=== PATIENT | female | born 1955 | race Caucasian/White ===

== ENCOUNTER 2017-05-15 17:02 | Observation (INO) | payer OTHER ==
[2017-05-15] MEDS ORDERED: HYDROMORPHONE 1MG/1ML INJ IV PRN (17:30)
[2017-05-15] MEDS ORDERED: HYDROMORPHONE 2MG/ML INJ IV PRN (17:30)
[2017-05-15 17:36] LABS: BASOPHILS # (AUTO) 0.1 (0.0-0.1); BASOPHILS % 0.4 % (0.0-1.0); EOSINOPHILS # (AUTO) 0.4 (0.0-0.4); EOSINOPHILS % 2.4 % (0.0-6.0); HEMATOCRIT 45.1 % (34.2-44.1); HEMOGLOBIN 14.3 g/dL (12.0-16.0); LYMPHOCYTES # (AUTO) 4.1 (1.0-3.2); LYMPHOCYTES % 28.3 % (18.0-39.1); MEAN CORPUSCULAR HEMOGLOBIN 29.5 pg (28-32); MEAN CORPUSCULAR HGB CONC 31.7 g/dL (31-35); MONOCYTES # (AUTO) 0.7 (0.2-0.8); MONOCYTES % 4.5 % (4.4-11.3); NEUTROPHILS # (AUTO) 9.3 (2.1-6.9); PLATELET COUNT 312 x10e3/uL (140-360); RED BLOOD COUNT 4.85 x10e6/uL (3.6-5.1); RED CELL DISTRIBUTION WIDTH 13.2 % (11.7-14.4)
[2017-05-15 17:58] VITALS: BP 111/61
[2017-05-15 18:00] LABS: ALANINE AMINOTRANSFERASE 12 IU/L (0-55); ALBUMIN 3.9 g/dL (3.5-5.0); ALBUMIN/GLOBULIN RATIO 0.9 (0.8-2.0); ALKALINE PHOSPHATASE 108 IU/L (40-150); AMYLASE 34 U/L (25-125); ANION GAP 15.2 mmol/L (8-16); BLOOD UREA NITROGEN 9 mg/dL (7-26); BUN/CREATININE RATIO 12 (6-25); CALCIUM 9.7 mg/dL (8.4-10.2); CARBON DIOXIDE 26 mmol/L (22-29); CHLORIDE 104 mmol/L (98-107); CREATININE, SERUM 0.76 mg/dL (0.57-1.11); EST GLOMERULAR FILTRATION RATE > 60 ML/MIN (60-); GLUCOSE 93 mg/dL (74-118); POTASSIUM 4.2 mmol/L (3.5-5.1); SODIUM 141 mmol/L (136-145)
[2017-05-15] MEDS ORDERED: COQ-10100 MG PO (18:10)
[2017-05-15] MEDS ORDERED: ZYRTEC10 M3 PO (18:10)
[2017-05-15] MEDS ORDERED: CRESTOR10 MG PO (18:10)
[2017-05-15] MEDS ORDERED: METFORMIN HCL500 MG PO (18:10)
[2017-05-15] MEDS ORDERED: VITAMIN D1000 UNI1 PO (18:10)
[2017-05-15] MEDS: SODIUM CHLORIDE 0.9% 1000ML 1,000 ML IV SCH (18:47)
[2017-05-15] MEDS: LEVOFLOXACIN 500MG/D5W 100ML 100 ML IV SCH (18:51)
[2017-05-15 20:00] VITALS: BP 102/54
[2017-05-15] MEDS ORDERED: METRONIDAZOLE 500MG/NS 100ML 100 ML IV SCH (22:00)
[2017-05-16] VITALS: BP 105/53
[2017-05-16] MEDS: CEFTRIAXONE SOD 1 GM/NS 50 ML 50 ML IV SCH (01:32)
[2017-05-16] MEDS: SODIUM CHLORIDE 0.9% 1000ML 1,000 ML IV SCH ×4 (01:32→20:10)
[2017-05-16 04:00] VITALS: BP 93/54
[2017-05-16] MEDS: INSULIN REGULAR, HUMAN 100 UNIT/1 ML 3ML VIAL SQ SCH ×5 (06:00→21:00)
[2017-05-16 06:56] LABS: BASOPHILS # (AUTO) 0.1 (0.0-0.1); BASOPHILS % 0.6 % (0.0-1.0); EOSINOPHILS # (AUTO) 0.4 (0.0-0.4); EOSINOPHILS % 3.4 % (0.0-6.0); HEMATOCRIT 44.9 % (34.2-44.1); HEMOGLOBIN 14.3 g/dL (12.0-16.0); LYMPHOCYTES # (AUTO) 4.1 (1.0-3.2); LYMPHOCYTES % 32.5 % (18.0-39.1); MEAN CORPUSCULAR HEMOGLOBIN 29.1 pg (28-32); MEAN CORPUSCULAR HGB CONC 31.8 g/dL (31-35); MEAN CORPUSCULAR VOLUME 91.4 fL (81-99); MONOCYTES # (AUTO) 0.6 (0.2-0.8); MONOCYTES % 4.8 % (4.4-11.3); NEUTROPHILS # (AUTO) 7.3 (2.1-6.9); NEUTROPHILS % 58.1 % (38.7-80.0); PLATELET COUNT 284 x10e3/uL (140-360); RED BLOOD COUNT 4.91 x10e6/uL (3.6-5.1); RED CELL DISTRIBUTION WIDTH 13.2 % (11.7-14.4)
[2017-05-16 07:18] LABS: ANION GAP 11.9 mmol/L (8-16); BLOOD UREA NITROGEN 9 mg/dL (7-26); BUN/CREATININE RATIO 13 (6-25); CALCIUM 9.1 mg/dL (8.4-10.2); CARBON DIOXIDE 27 mmol/L (22-29); CHLORIDE 106 mmol/L (98-107); EST GLOMERULAR FILTRATION RATE > 60 ML/MIN (60-); GLUCOSE 92 mg/dL (74-118); POTASSIUM 3.9 mmol/L (3.5-5.1); SODIUM 141 mmol/L (136-145)
[2017-05-16 08:31] VITALS: BP 118/55
[2017-05-16] MEDS ORDERED: DIATRIZOATE MEGL/DIATRIZOA SOD 30 ML BTL PO ONE (09:06)
[2017-05-16] MEDS: PANTOPRAZOLE 40 MG 10ML VIAL IV SCH (10:20)
--- NOTE | 2017-05-16 10:53 | Diagnostic Imaging Report ---
PROCEDURE: CT ABDOMEN AND PELVIS WITHOUT CONTRAST TECHNIQUE: The abdomen and pelvis were scanned utilizing a multidetector helical scanner from the diaphragm to the lesser trochanter after the oral administration of Redicat. No intravenous contrast was administered per referring physician request. Coronal and sagittal multiplanar reformations were obtained. COMPARISON: None. INDICATIONS: ABDOMINAL PAIN FINDINGS: ABSENCE OF INTRAVENOUS CONTRAST DECREASES SENSITIVITY FOR DETECTION OF FOCAL LESIONS AND VASCULAR PATHOLOGY. LOWER THORAX: Normal. HEPATOBILIARY: Hepatic parenchyma is diffusely hypoattenuating compatible with steatosis. No focal hepatic lesion or intrahepatic biliary ductal dilatation. The gallbladder has been removed with multiple metallic clips in the gallbladder fossa. SPLEEN: No splenomegaly. PANCREAS: No focal masses or ductal dilatation. ADRENALS: No adrenal nodules. KIDNEYS/URETERS: No hydronephrosis, stones, or solid mass lesions. PELVIC ORGANS/BLADDER: The urinary bladder and uterus are unremarkable. The uterus is anteflexed. 2.1 cm right adnexal cystic lesion, average internal attenuation 5-10 Hounsfield units. PERITONEUM / RETROPERITONEUM: No ascites. No pneumoperitoneum. LYMPH NODES: No pelvic sidewall, retroperitoneal, or mesenteric lymphadenopathy. VESSELS: Limited evaluation without intravenous contrast. Atherosclerotic calcification of the abdominal aorta and branch vessels without aneurysmal dilatation. GI TRACT: There is a mild concentric wall thickening of the distal sigmoid colon and rectum and, to a lesser extent, the ascending and transverse colon. The appendix is not identified and has presumably been removed. There is no small bowel dilatation to suggest obstruction. BONES AND SOFT TISSUES: No focal soft tissue abnormalities. No osseous destructive lesions. Multilevel degenerative disc changes of the lumbar spine. IMPRESSION: Findings suggest mild proctocolitis, likely infectious in nature. No evidence of perforation or drainable fluid collection. Right adnexal cystic lesion should be further evaluated by pelvic ultrasound in a patient of this age. Atherosclerotic vascular disease. Hepatic steatosis. Dictated by: Eric Lopez M.D. on 05/16/2017 at 10:59 Electronically approved by: Eric Lopez M.D. on 05/16/2017 at 10:59
[2017-05-16] MEDS ORDERED: DEXTROSE 50% SYRINGE 50 ML IV PRN (11:30)
[2017-05-16 12:00] VITALS: BP 103/55
[2017-05-16] MEDS: LORATADINE 10 MG TAB PO SCH (12:55)
[2017-05-16] MEDS: CHOLECALCIFEROL 1,000 UNIT TAB PO SCH (12:55)
--- NOTE | 2017-05-16 12:56 | Diagnostic Imaging Report ---
PROCEDURE:TRANSVAGINAL ULTRASOUND COMPARISON:[facility], CT, CT ABDOMEN/PELVIS WO, 05/16/2017, 10:19. INDICATIONS:Adnexal Cyst on recent CT examination. Ultrasound requested for further characterization. FINDINGS: A3 Multiple sagittal and axial images were obtained of the pelvis transabdominally and transvaginally. The uterus is normal in orientation and measures 8.0 x 3.9 x 4.4 cm, mildly prominent likely related to multiparity. It is of normal echogenicity without focal masses. The endometrial stripe measures 0.5 and is within normal limits. Cervical nabothian cysts, the largest mildly complex. The right ovary measures 3.8 x 2.7 x 3.0 cm. there is an oval anechoic lesion in the right ovary measuring 3.2 x 2.3 x 2.4 cm. The left ovary is not visualized compatible with provided history of status post oophorectomy. No right or left paraovarian masses identified. No free fluid seen within the pelvic cul-de-sac. CONCLUSION: 1. 3.2 cm simple cyst in the right ovary. Recommend followup ultrasound the pelvis in one year to document resolution (society of ultrasound consensus recommendation). Shaun Espinosa M.D. Dictated by: Shaun Espinosa M.D. on 05/16/2017 at 13:02 Electronically approved by: Shaun Espinosa M.D. on 05/16/2017 at 13:02
[2017-05-16 15:46] LABS: BILIRUBIN,URINE NEGATIVE (NEGATIVE); KETONES,URINE NEGATIVE (NEGATIVE); LEUKOCYTE ESTERASE ,URINE NEGATIVE (NEGATIVE); NITRITE,URINE NEGATIVE (NEGATIVE); PROTEIN,URINE DIPSTICK NEGATIVE (NEGATIVE); URINE UROBILINOGEN 0.2 mg/dL (0.2 - 1)
[2017-05-16 15:56] LABS: CLARITY,URINE CLEAR (CLEAR); COLOR,URINE STRAW (YELLOW)
[2017-05-16 16:04] LABS: EPITHELIAL CELLS,URINE MODERATE /LPF
[2017-05-16 16:05] LABS: RBC,URINE 0-5 /HPF (0-5); WBC,URINE (MAN) 0-5 /HPF (0-5)
[2017-05-16] MEDS ORDERED: PEG (High)/E-LYTE SOLN 4,000 ML BTL PO ONE (17:15)
[2017-05-16] MEDS: METFORMIN HCL 500 MG TAB PO SCH (17:44)
[2017-05-16 18:07] VITALS: BP 125/64
[2017-05-16 20:00] VITALS: BP 133/62
[2017-05-16] MEDS: LEVOFLOXACIN 500MG/D5W 100ML 100 ML IV SCH (20:05)
[2017-05-16] MEDS ORDERED: SIMVASTATIN 20 MG TAB PO SCH (21:00)
[2017-05-17] MEDS: CEFTRIAXONE SOD 1 GM/NS 50 ML 50 ML IV SCH (00:20)
[2017-05-17 02:23] VITALS: BP 108/55
[2017-05-17] MEDS: SODIUM CHLORIDE 0.9% 1000ML 1,000 ML IV SCH ×3 (03:05→16:10)
[2017-05-17 04:00] VITALS: BP 122/56
[2017-05-17 06:46] LABS: BASOPHILS # (AUTO) 0.1 (0.0-0.1); BASOPHILS % 0.5 % (0.0-1.0); EOSINOPHILS # (AUTO) 0.4 (0.0-0.4); EOSINOPHILS % 2.9 % (0.0-6.0); HEMOGLOBIN 13.4 g/dL (12.0-16.0); LYMPHOCYTES # (AUTO) 3.9 (1.0-3.2); LYMPHOCYTES % 32.2 % (18.0-39.1); MEAN CORPUSCULAR HEMOGLOBIN 29.6 pg (28-32); MEAN CORPUSCULAR HGB CONC 31.9 g/dL (31-35); MEAN CORPUSCULAR VOLUME 92.9 fL (81-99); MONOCYTES # (AUTO) 0.7 (0.2-0.8); MONOCYTES % 5.4 % (4.4-11.3); NEUTROPHILS % 58.6 % (38.7-80.0); PLATELET COUNT 244 x10e3/uL (140-360); RED BLOOD COUNT 4.52 x10e6/uL (3.6-5.1); RED CELL DISTRIBUTION WIDTH 13.1 % (11.7-14.4)
[2017-05-17 07:19] LABS: ANION GAP 11.8 mmol/L (8-16); BLOOD UREA NITROGEN 5 mg/dL (7-26); BUN/CREATININE RATIO 7 (6-25); CARBON DIOXIDE 28 mmol/L (22-29); CHLORIDE 106 mmol/L (98-107); CREATININE, SERUM 0.67 mg/dL (0.57-1.11); EST GLOMERULAR FILTRATION RATE > 60 ML/MIN (60-); GLUCOSE 94 mg/dL (74-118); POTASSIUM 3.8 mmol/L (3.5-5.1); SODIUM 142 mmol/L (136-145)
[2017-05-17] MEDS: INSULIN REGULAR, HUMAN 100 UNIT/1 ML 3ML VIAL SQ SCH ×3 (07:30→16:30)
[2017-05-17] MEDS: METFORMIN HCL 500 MG TAB PO SCH ×2 (07:37→17:58)
[2017-05-17 08:12] VITALS: BP 117/53
[2017-05-17] MEDS: PANTOPRAZOLE 40 MG 10ML VIAL IV SCH (08:48)
[2017-05-17] MEDS: LORATADINE 10 MG TAB PO SCH (08:48)
[2017-05-17] MEDS: CHOLECALCIFEROL 1,000 UNIT TAB PO SCH (08:51)
[2017-05-17] MEDS ORDERED: SIMVASTATIN 40 MG TAB PO SCH (09:00)
[2017-05-17 12:15] VITALS: BP 117/84
[2017-05-17] MEDS ORDERED: HYOSCYAMINE SULFATE 0.5 MG/ML AMP ONE (15:17)
[2017-05-17] MEDS ORDERED: FENTANYL CITRATE/PF 100MCG/2 ML INJ ONE (16:25)
[2017-05-17] MEDS ORDERED: MIDAZOLAM HCL 2 MG/2 ML VIAL ONE (16:25)
[2017-05-17 17:01] LABS: WBC,FECAL (FECAL LACTOFERRIN) NEGATIVE (NEGATIVE)
[2017-05-17] MEDS ORDERED: LEVAQUIN500 MG PO (18:05)
[2017-05-17] MEDS ORDERED: GLUCAGON FOR INJ 1 MG VIAL ONE (18:55)
[2017-05-17 20:00] VITALS: BP 129/68
[2017-05-18 09:33] LABS: C DIFFICILE TOXIN A&B AMP PROB NEGATIVE (NEGATIVE)
--- NOTE | 2017-07-03 00:10 | Operative Report ---
DATE OF PROCEDURE: May 17, 2017 REFERRING PHYSICIAN: Dr. Silver Robison PROCEDURES 1. Esophagogastroduodenoscopy with biopsies. 2. Colonoscopy with polypectomy and biopsies. INDICATIONS FOR EGD: Upper abdominal pain. INDICATIONS FOR COLONOSCOPY: Lower abdominal pain and abnormal CT scan. MEDICATIONS: Patient was done under MAC. Please see anesthesiologist's notes. PROCEDURE: With the patient in the left lateral decubitus position, the flexible fiberoptic Olympus gastroscope was introduced into the esophagus under direct visualization without any difficulty. There were some mild inflammatory changes noted in the distal esophagus. The scope was then advanced with ease into the stomach traversing a small hiatal hernia. Mucosa overlying the antrum and the body revealed some diffuse erythema and low-grade edema, and biopsies were obtained and sent to stain for H. pylori. Approximately, 1 cm raised area was noted in the proximal body along the greater curvature. That was biopsied. The pylorus appeared to be of normal contour and shape. It was intubated with ease. The scope was advanced all the way to the 2nd portion of the duodenum. The scope was then withdrawn slowly. Mucosa overlying the proximal 2nd portion and the duodenal bulb appeared to be within normal limits. The scope was then withdrawn back into the stomach and retroflexed. The mucosa overlying the fundus and the cardia appeared to be within normal limits. The scope was then straightened out. The stomach was decompressed. The scope was subsequently withdrawn. Patient tolerated the procedure well. IMPRESSION 1. Distal esophagitis. 2. Hiatal hernia. 3. Gastritis, biopsied. Biopsy sent to stain for Helicobacter pylori. 4. Approximately 1 cm focally raised area in upper body greater curvature, biopsied. PLAN: Follow up histology. Initiate Protonix 40 mg 1 p.o. q.a.m. and a.c. Patient might need an EUS to examine the aforementioned raised area in the body of the stomach. Patient was then turned around. After adequate lubrication of the anal canal, a flexible fiberoptic Olympus colonoscope was inserted into the rectum with ease and advanced all the way to the cecum. The ileocecal valve was intubated. The scope was advanced into the terminal ileum. Biopsies were obtained. The scope was then withdrawn back into the colon. Prep overall was suboptimal with retained stool in the colon. The scope was then withdrawn slowly. Whatever was visualized of the mucosa overlying the ascending colon and transverse colon appeared to be within normal limits. One polyp was hot biopsied from the descending colon. Diverticular disease was noted to involve the sigmoid colon. The mucosa overlying the sigmoid and the rectum revealed some patchy mild inflammatory changes, and biopsies were obtained. One polyp was snared from the sigmoid colon. One polyp was snared from the rectum. The scope was then retroflexed into the distal rectum and small internal hemorrhoids were noted, none of which was actively bleeding. The scope was then straightened out. The rectosigmoid area, as well as the distal rectal area were decompressed. The scope was subsequently withdrawn after securing an adequate stool specimen that was sent for the appropriate stool studies. Patient tolerated the procedure well. IMPRESSION 1. Suboptimal prep. 2. Descending colon polyp, hot biopsied. 3. Diverticulosis. 4. Sigmoid colon polyp, snared. 5. Rectal polyp, snared. 6. Mild proctosigmoiditis. 7. Internal hemorrhoids, none actively bleeding. PLAN: Follow up histology. Follow up stool studies. Patient will need a repeat colonoscopy after a better prep to rule out synchronous colon neoplasm. Job#: [id number] RI cc:SILVER ROBISON MD
== END 2017-05-17 19:54 | disposition home or self-care (01) ==
LOC: MED/SURG 17:09 → INTOOBSV 17:09
PROVIDERS: ADMIT Surgery; ATTEND Surgery
DX: D12.4 Benign neoplasm of descending colon (principal); R10.31 Right lower quadrant pain; E11.9 Type 2 diabetes mellitus without complications; I25.10 Atherosclerotic heart disease of native coronary artery without angina pectoris; K51.30 Ulcerative (chronic) rectosigmoiditis without complications; K57.90 Diverticulosis of intestine, part unspecified, without perforation or abscess without bleeding; K62.1 Rectal polyp; K20.9 Esophagitis, unspecified; K29.70 Gastritis, unspecified, without bleeding
CPT/HCPCS: 36415 ×3; 45380; 45384; 45385; 74176; 76830; 80048 ×2; 80053; 81001; 82150; 82948 ×2; 83630; 83993; 85025 ×3; 87045; 87086; 87493; 88305; 88312; 93005; G0378 ×3; J0696 ×2; J1610; J1956 ×2; J1980; J2250; J7030 ×3; J7799; 43239

== ENCOUNTER → 2017-07-30 | Outpatient (CLI) | payer OTHER ==
[~2017-07-30] MED LIST: COQ-10100 MG PO; CRESTOR10 MG PO; LEVAQUIN500 MG PO; METFORMIN HCL500 MG PO; VITAMIN D1000 UNI1 PO; ZYRTEC10 M3 PO
--- NOTE | 2017-08-14 08:24 | Diagnostic Imaging Report ---
#[id number] - MGSCRBIL #BILATERAL DIGITAL SCREENING MAMMOGRAM WITH CAD: 07/30/2017 CLINICAL: Routine screening. Comparison is made to exams dated: 07/12/2016 mammogram, 06/18/2015 mammogram and 06/18/2014 mammogram - [facility]. Current study contains 5 films. There are scattered fibroglandular elements in both breasts. Current study was also evaluated with a Computer Aided Detection (CAD) system. There are benign calcifications in both breasts. There also are benign nodules in the right breast. No significant masses, calcifications, or other findings are seen in either breast. There has been no significant interval change. IMPRESSION: BENIGN There is no mammographic evidence of malignancy. A 1 year screening mammogram is recommended. The patient will be notified by letter of the results. Vel sharma/gold:08/13/2017 08:21:26 Cleaner Wall: Chloe CORBETT(Autumn)(Melissa), [facility] letter sent: Compared to Prior B9 Mammogram BI-RADS: 2 Benign
== END ==
LOC: MAMMO 13:38
PROVIDERS: ATTEND Family Medicine
DX: Z12.31 Encounter for screening mammogram for malignant neoplasm of breast (principal)
CPT/HCPCS: 77067

== ENCOUNTER → 2017-11-28 | Outpatient (CLI) | payer OTHER ==
--- NOTE | 2017-11-28 17:28 | Diagnostic Imaging Report ---
EXAM: Transabdominal and Transvaginal Pelvic Ultrasound INDICATION: ADNEXAL CYST COMPARISON: 05/16/2017 TECHNIQUE: Grayscale transverse and sagittal transabdominal images were obtained of the pelvis. CLINICAL HISTORY: 62 year old A3; last menstrual period: At least 10 years ago. FINDINGS: Uterus Orientation: Normal Size: 7.7 x 3.5 x 4.4 cm, Normal Mass: None Cervix: Normal Endometrium: Thickness: 0.4 cm, Normal. Appearance: Homogeneous echotexture without focal thickening. Right ovary: Size: 4.4 x 2.5 x 2.8 cm Mass/Cyst: Anechoic lesion measures 2.5 x 2.0 x 1.9 cm, previously 3.2 x 2.3 x 2.4 cm (previous measurement obtained transvaginally). Left ovary: Not visualized. Adnexa: Normal Cul-de-sac: No free fluid IMPRESSION: Mild interval decrease in size of right ovarian cyst currently measuring 2.5 cm in maximal dimension. Suggest additional follow-up pelvis in one year to further document stability. Signed by: Dr. Shaun Espinosa M.D. on 11/28/2017 5:24 PM
== END ==
LOC: US 13:44
PROVIDERS: ATTEND Internal Medicine Gastroenterology
DX: D39.8 Neoplasm of uncertain behavior of other specified female genital organs (principal)
CPT/HCPCS: 76856

== ENCOUNTER → 2018-04-18 | Outpatient (CLI) | payer OTHER ==
--- NOTE | 2018-04-18 10:26 | Diagnostic Imaging Report ---
PROCEDURE:US LIVER COMPARISON:None. INDICATIONS:FATTY LIVER TECHNIQUE: Braswell-scale and color doppler transverse and longitudinal images of the right upper quadrant of the abdomen were obtained. FINDINGS: Liver: Measures 15.3 cm in right mid-clavicular line. Normal echogenicity. No masses. Main portal vein: Measures 0.8 cm, Hepatopetal flow. Gallbladder: Status post cholecystectomy. Common Bile Duct: 0.5 cm Right kidney: Measures 10.2 cm. Normal echogenicity. No solid masses or hydronephrosis. Pancreas: The visualized portions are unremarkable. Inferior vena cava: Patent Aorta: Within normal limits Ascites: None in the right upper quadrant of the abdomen. CONCLUSION: No sonographic evidence of fatty liver. Status post cholecystectomy. Dictated by: WILLEM DONOVAN M.D. on 04/18/2018 at 10:34 Electronically approved by: WILLEM DONOVAN M.D. on 04/18/2018 at 10:34
== END ==
LOC: US 08:36
PROVIDERS: ATTEND Internal Medicine Gastroenterology
DX: K76.0 Fatty (change of) liver, not elsewhere classified (principal)
CPT/HCPCS: 76705

== ENCOUNTER → 2018-08-06 | Outpatient (CLI) | payer OTHER | LOC: MAMMO 10:41 | DX: Z12.31 Encounter for screening mammogram for malignant neoplasm of breast (principal) | CPT/HCPCS: 77067 ==

== ENCOUNTER → 2019-06-13 | Day surgery (SDC) | payer OTHER ==
[~2019-06-13] MED LIST changes: +FENTANYL CITRATE/PF 100MCG/2 ML INJ ONE; +HYOSCYAMINE 0.125 MG TAB ONE; +MIDAZOLAM HCL 2 MG/2 ML VIAL ONE; +PANTOPRAZOLE SO40 MG PO; +PROPOFOL IV EMULSION 10 MG/ML 50 ML VIAL ONE; +VITAMIN B-121000 MCG PO
[2019-06-13 12:30] VITALS: BP 97/56
--- NOTE | 2019-06-13 18:38 | Operative Report ---
DATE OF PROCEDURE: 06/13/2019 SURGEON: Randy Olivier MD PROCEDURE: EGD with biopsy and colonoscopy with polypectomy. INDICATIONS FOR EGD: History of acid reflux, gastric nodule. INDICATIONS FOR COLONOSCOPY: Surveillance colonoscopy, personal history of colon polyps, suboptimal prep on previous colonoscopy. MEDICATIONS: The patient was done under MAC, please see anesthesiologist's note. PROCEDURE IN DETAIL: With the patient in left lateral decubitus position, flexible fiberoptic Olympus gastroscope was introduced into the esophagus under direct visualization without any difficulty. There was a minute sessile lesion noted in the cervical esophagus just below the upper esophageal sphincter and that was biopsied. The scope was then advanced to the distal esophagus and there was some patchy mild erythema noted in the distal esophagus. The scope was then advanced with ease into the stomach traversing a small sliding hiatal hernia. Mucosa overlying the antrum and the body revealed some patchy intense erythema and moderate edema and biopsies were obtained and sent to stain for H pylori. Pylorus was of normal contour and shape was intubated with ease and the scope was advanced all the way to the second portion of the duodenum. The scope was then withdrawn slowly, mucosa overlying the proximal second portion and the duodenal bulb appeared to be within normal limits. The scope was then withdrawn back into the stomach and retroflexed the mucosa overlying the fundus and cardia appeared to be within normal limits. The scope was then straightened out, it was subsequently withdrawn. The patient tolerated the procedure well. IMPRESSION: 1. Minute sessile, slightly raised, nodule just below the upper esophageal sphincter biopsy. 2. Mild distal esophagitis. 3. Small sliding hiatal hernia. 4. Gastritis, biopsied sent to stain for H pylori. PLAN: Follow up histology. Continue Protonix 40 mg one p.o. q.a.m. a.c. The patient was then turned around after adequate lubrication of the anal canal a flexible fiberoptic Olympus colonoscope was inserted into the rectum with ease and advanced all the way to the cecum. It was then withdrawn slowly. Mucosa overlying the cecum and ascending colon appeared to be within normal limits. Two minute polyps were hot biopsied from the transverse colon. One minute polyp was hot biopsied from the descending colon. Diverticular disease was noted to involve the distal descending and the sigmoid colon and one polyp was hot biopsied from the distal rectum. The scope was then retroflexed into the distal rectum and small internal hemorrhoids were noted, none of which was actively bleeding. The scope was then straightened out and was subsequently withdrawn. The patient tolerated procedure well. IMPRESSION: 1. Transverse colon polyps x2, hot biopsied. 2. Descending colon polyp, hot biopsied. 3. Diverticulosis. 4. Rectal polyp, hot biopsied. 5. Internal hemorrhoids, none actively bleeding. PLAN: Follow up histology. Initiate high-fiber, low-fat diet. Initiate high-fiber supplement. The patient might benefit from a followup colonoscopy in 5 years. Randy Olivier MD [facility] – [place] /[id number] cc: MD Randy Greer MD
--- OUTSIDE RECORDS SUMMARY | 2019-06-20 11:49 | XMS REPORT ---
Author [facility] Address Unknown Phone Unavailable Care Team Providers Care Drawer Upfitter Name Role Phone CARMELLA SHEN Unavailable Unavailable MEE SHEN Unavailable Unavailable ARNOLDO GANDHI Unavailable Unavailable Tara LUGO Unavailable Unavailable Problems This patient has no known problems. Allergies, Adverse Reactions, Alerts This patient has no known allergies or adverse reactions. Medications This patient has no known medications. Results Test Description Test Time Test Comments Text Results Atomic Results Result Comments MAMMOGRAPHY DIGITAL SCR BILAT 2018-08-06 11:34:00 [place] [address] Patient Name: ABHI LEMOS MR #: [id number] : 1955 Age/Sex: 63/F Req #: [id number] Adm Physician: Ordered by: CARMELLA SHEN MD Report #: [id number] Location: MAMMO Room/Bed: Procedure: [id number] MG/MAMMOGRAPHY DIGITAL SCR BILAT Exam Date: 08/06/18 Exam Time: 1100 REPORT STATUS: Signed #[id number] - MGSCRBIL #BILATERAL DIGITAL SCREENING MAMMOGRAM WITH CAD: 08/06/2018 CLINICAL: Routine screening. Comparison is made to exams dated: 07/30/2017 mammogram and 06/18/2015 mammogram - [facility]. Current study contains 4 films. There are scattered fibroglandular elements in both breasts. Current study was also evaluated with a Computer Aided Detection (CAD) system. There are benign calcifications in both breasts. No significant masses, calcifications, or other findings are seen in either breast. There has been no significant interval change. IMPRESSION: BENIGN There is no mammographic evidence of malignancy. A 1 year screening mammogram is recommended. The patient will be notified by letter of the results. Vel sharma/gold:08/21/2018 13:39:45 Hydroblaster: Chloe MURPHY)(Melissa), [facility] letter sent: Compared to Prior B9 Mammogram BI-RADS: 2 Benign Dictated By: VEL ATKINS DO 1339 Transcribed By: GOLD on 08/21/18 1339 COPY TO: CARMELLA SHEN MD LIVER 2018-04-18 10:35:00 [place] [address] Patient Name: ABHI LEMOS MR #: [id number] : 1955 Age/Sex: 62/F Req #: [id number] [facility] Physician: Ordered by: MEE SHEN MD Report #: [id number] Location: Room/Bed: Procedure: [id number] US/US LIVER Exam Date: 04/18/18 Exam Time: 908 REPORT STATUS: Signed PROCEDURE: US LIVER COMPARISON: None. INDICATIONS: FATTY L IVER TECHNIQUE: Braswell-scale and color doppler transverse and longitudinal images of the right upper quadrant of the abdomen were obtained. FINDINGS: Liver: Measures 15.3 cm in right mid-clavicular line. Normal echogenicity. No masses. Main portal vein: Measures 0.8 cm, Hepatopetal flow. Gallbladder: Status post cholecystectomy. Common Bile Duct: 0.5 cm Right kidney: Measures 10.2 cm. Normal echogenicity. No solid masses or hydronephrosis. Pancreas: The visualized portions are unremarkable. Inferior vena cava: Patent Aorta: Within normal limits Ascites: None in the right upper quadrant of the abdomen. CONCLUSION: No sonographic evidence of fatty liver. Status post cholecystectomy. Dictated by: WILLEM DONOVAN M.D. on 04/18/2018 at 10:34 Electronically approved by: WILLEM DONOVAN M.D. on 04/18/2018 at 10:34 Dictated By: WILLEM DONOVAN MD 1035 Transcribed By: GARY on 04/18/18 1035 COPY TO: MEE HSEN MD US PELVIS COMPLETE NON OB [place] [address] Patient Name: ABHI LEMOS MR #: [id number] : 1955 Age/Sex: 62/F Req #: [id number] Adm Physician: Ordered by: MEE SHEN MD Report #: [id number] Location: Room/Bed: Procedure: [id number] US/US PELVIS COMPLETE NON OB Exam Date: 11/28/17 Exam Time: 1417 REPORT STATUS: Signed EXAM: Transabdominal and Transvaginal Pelvic Ultrasound INDICATION: ADNEXAL CYST COMPARISON: 05/16/2017 TECHNIQUE: Grayscale transverse and sagittal transabdominal images were obtained of the pelvis. CLINICAL HISTORY: 62 year old A3; last menstrual period: At least 10 years ago. FINDINGS: Uterus Orientation: Normal Size: 7.7 x 3.5 x 4.4 cm, Normal Mass: None Cervix: Normal Endometrium: Thickness: 0.4 cm, Normal. Appearance: Homogeneous echotexture without focal thickening. Right ovary: Size: 4.4 x 2.5 x 2.8 cm Mass/Cyst: Anechoic lesion measures 2.5 x 2.0 x 1.9 cm, previously 3.2 x 2.3 x 2.4 cm (previous measurement obtained transvaginally). Left ovary: Not visualized. Adnexa: Normal Cul-de-sac: No free fluid IMPRESSION: Mild interval decrease in size of right ovarian cyst currently measuring 2.5 cm in maximal dimension. Suggest additional follow-up pelvis in one year to further document stability. Signed by: Dr. Shaun Liao M.D. on 11/28/2017 5:24 PM Dictated By: CONNIE LIAO MD, MD 23 Transcribed By: WSEETIE on 11/28/171723 COPY TO: MEE SHEN MD MAMMOGRAPHY DIGITAL SCR BILAT [place] [address] Patient Name: ABHI LEMOS MR #: [id number] : 1955 Age/Sex: 62/F Req #: [id number] Adm Physician: Ordered by: ARNOLDO GANDHI MD Report #: [id number] Location: MAMMO Room/Bed: Procedure: [id number] MG/MAMMOGRAPHY DIGITAL SCR BILAT Exam Date: 07/30/17 Exam Time: 1433 REPORT STATUS: Signed #[id number] - MGSCRBIL #BILATERAL DIGITAL SCREENING MAMMOGRAM WITH CAD: 07/30/2017 CLINICAL: Routine screening. Comparison is made to exams dated: 07/12/2016 mammogram, 06/18/2015 mammogram and 06/18/2014 mammogram - [facility]. Current study contains 5 films. There are scattered fibroglandular elements in both breasts. Current study was also evaluated with a Computer Aided Detection (CAD) system. There are benign calcifications in both breasts. There also are benign nodules in the right breast. No significant masses, calcifications, or other findings are seen in either breast. There has been no significant interval change. IMPRESSION: BENIGN There is no mammographic evidence of malignancy. A 1 year screening mammogram is recommended. The patient will be notified by letter of the results. Vel sharma/gold:08/13/2017 08:21:26 Hydroblaster: Chloe CORBETT(R)(M), [facility] letter sent: Compared to Prior B9 Mammogram BI-RADS: 2 Benign Dictated By: VEL ATKINS DO 0 Transcribed By: GOLD on 08/13/17820 COPY TO: ARNOLDO GANDHI MD CT ABDOMEN/PELVIS [place] [address] Patient Name: ABHI LEMOS MR #: [id number] : 1955 Age/Sex: 62/F Req #: [id number] Adm Physician: SHANELL LUGO MD Ordered by: SHANELL LUGO MD Report #: [id number] Location: MED/SURG Room/Bed: [facility] [place] Procedure: [id number] CT/CT ABDOMEN/PELVIS WO Exam Date: 05/16/17 Exam Time: 1015 REPORT STATUS: Signed PROCEDURE: CT ABDOMEN AND PELVIS WITHOUT CONTRAST TECHNIQUE: The abdomen and pelvis were scanned utilizing a multidetector helical scanner from the diaphragm to the lesser trochanter after the oral administration of Redicat. No intravenous contrast was administered per referring physician request. Coronal and sagittal multiplanar reformations were obtained. COMPARISON: None. INDICATIONS: ABDOMINAL PAIN FINDINGS: ABSENCE OF INTRAVENOUS CONTRAST DECREASES SENSITIVITY FOR DETECTION OF FOCAL LESIONS AND VASCULAR PATHOLOGY. LOWER THORAX: Normal. HEPATOBILIARY: Hepatic parenchyma is diffusely hypoattenuating compatible with steatosis. No focal hepatic lesion or intrahepatic biliary ductal dilatation. The gallbladder has been removed with multiple metallic clips in the gallbladder fossa. SPLEEN: No splenomegaly. PANCREAS: No focal masses or ductal dilatation. ADRENALS: No adrenal nodules. KIDNEYS/URETERS: No hydronephrosis, stones, or solid mass lesions. PELVIC ORGANS/BLADDER: The urinary bladder and uterus are unremarkable. The uterus is anteflexed. 2.1 cm right adnexal cystic lesion, average internal attenuation 5-10 Hounsfield units. PERITONEUM / RETROPERITONEUM: No ascites. No pneumoperitoneum. LYMPH NODES: No pelvic sidewall, retroperitoneal, or mesenteric lymphadenopathy. VESSELS: Limited evaluation without intravenous contrast. Atherosclerotic calcification of the abdominal aorta and branch vessels without aneurysmal dilatation. GI TRACT: There is a mild concentric wall thickening of the distal sigmoid colon and rectum and, to a lesser extent, the ascending and transverse colon. The appendix is not identified and has presumably been removed. There is no small bowel dilatation to suggest obstruction. BONES AND SOFT TISSUES: No focal soft tissue abnormalities. No osseous destructive lesions. Multilevel degenerative disc changes of the lumbar spine. IMPRESSION: Findings suggest mild proctocolitis, likely infectious in nature. No evidence of perforation or drainable fluid collection. Right adnexal cystic lesion should be further evaluated by pelvic ultrasound in a patient of this age. Atherosclerotic vascular disease. Hepatic steatosis. Dictated by: Sandhya Jeffers M.D. on 05/16/2017 at 10:59 Electronically approved by: Sandhya Jeffers M.D. on 05/16/2017 at 10:59 Dictated By: SANDHYA JEFFERS MD 58 Transcribed By: GARY on 05/16/171058 COPY TO: SHANELL LUGO MD US TRANSVAGINAL [place] [address] Patient Name: ABHI LEMOS MR #: [id number] : 1955 Age/Sex: 62/F Req #: [id number] Adm Physician: SHANELL LUGO MD Ordered by: CARMELLA SHEN MD Report #: [id number] Location: MED/SURG Room/Bed: [facility] [place] Procedure: [id number] US/US TRANSVAGINAL Exam Date: Exam Time: REPORT STATUS: Signed PROCEDURE: TRANSVAGINAL ULTRASOUND COMPARISON: [facility], CT, CT ABDOMEN/PELVIS WO, 05/16/2017, 10:19. INDICATIONS: Adnexal Cyst on recent CT examination. Ultrasound requested for further characterization. FINDINGS: A3 Multiple sagittal and axial images were obtained of the pelvis transabdominally and transvaginally. The uterus is normal in orientation and measures 8.0 x 3.9 x 4.4 cm, mildly prominent likely related to multiparity. It is of normal echogenicity without focal masses. The endometrial stripe measures 0.5 and is within normal limits. Cervical nabothian cysts, the largest mildly complex. The right ovary measures 3.8 x 2.7 x 3.0 cm. there is an oval anechoic lesion in the right ovary measuring 3.2 x 2.3 x 2.4 cm. The left ovary is not visualized compatible with provided history of status post oophorectomy. No right or left paraovarian masses identified. No free fluid seen within the pelvic cul-de-sac. CONCLUSION: 1. 3.2 cm simple cyst in the right ovary. Recommend followup ultrasound the pelvis in one year to document resolution (society of ultrasound consensus recommendation). Shaun Liao M.D. Dictated by: Shaun Liao M.D. on 05/16/2017 at 13:02 Electronically approved by: Shaun Liao M.D. on 05/16/2017 at 13:02 Dictated By: CONNIE LIAO MD, MD 1302 Transcribed By: GARY on 05/16/17 1302 COPY TO: CARMELLA SHEN MD
== END | disposition home or self-care (01) ==
LOC: OR 06:13
PROVIDERS: ATTEND Internal Medicine Gastroenterology
DX: Z09 Encounter for follow-up examination after completed treatment for conditions other than malignant neoplasm (principal); D12.3 Benign neoplasm of transverse colon; K62.1 Rectal polyp; K29.70 Gastritis, unspecified, without bleeding; K22.8 Other specified diseases of esophagus; K20.9 Esophagitis, unspecified; K44.9 Diaphragmatic hernia without obstruction or gangrene; K21.9 Gastro-esophageal reflux disease without esophagitis; K57.30 Diverticulosis of large intestine without perforation or abscess without bleeding; K64.8 Other hemorrhoids; E11.9 Type 2 diabetes mellitus without complications; I25.2 Old myocardial infarction; E78.5 Hyperlipidemia, unspecified; I10 Essential (primary) hypertension; R00.1 Bradycardia, unspecified; F17.210 Nicotine dependence, cigarettes, uncomplicated; Z88.6 Allergy status to analgesic agent; Z88.0 Allergy status to penicillin; Z88.2 Allergy status to sulfonamides; Z01.810 Encounter for preprocedural cardiovascular examination; Z79.84 Long term (current) use of oral hypoglycemic drugs
CPT/HCPCS: 36415; 43239; 45384; 82948; 93005; J2250; J2704; J3010

== ENCOUNTER → 2022-01-09 | Outpatient (CLI) | payer OTHER ==
[~2022-01-09] MED LIST changes: -FENTANYL CITRATE/PF 100MCG/2 ML INJ ONE; -HYOSCYAMINE 0.125 MG TAB ONE; -MIDAZOLAM HCL 2 MG/2 ML VIAL ONE; -PROPOFOL IV EMULSION 10 MG/ML 50 ML VIAL ONE
== END ==
LOC: MAMMO 08:49
DX: Z12.31 Encounter for screening mammogram for malignant neoplasm of breast (principal)
CPT/HCPCS: 77067

== ENCOUNTER → 2023-01-09 | Outpatient (CLI) | payer MEDICARE, OTHER | LOC: MAMMO 09:24 | PROVIDERS: ATTEND Internal Medicine | DX: Z12.31 Encounter for screening mammogram for malignant neoplasm of breast (principal) | CPT/HCPCS: 77067 ==

== ENCOUNTER → 2024-04-03 | Outpatient (REF) | payer MEDICARE, OTHER | LOC: MAMMO 10:51 | PROVIDERS: ATTEND Internal Medicine | DX: Z12.31 Encounter for screening mammogram for malignant neoplasm of breast (principal) | CPT/HCPCS: 77067 ==

== ENCOUNTER → 2025-04-15 | Outpatient (REF) | payer MEDICARE, OTHER | LOC: MAMMO 10:05 | PROVIDERS: ATTEND Internal Medicine | DX: Z12.31 Encounter for screening mammogram for malignant neoplasm of breast (principal) | CPT/HCPCS: 77067 ==